=== PATIENT | female | born 1985 | race African-American/Black ===

== ENCOUNTER 2017-05-11 18:54 | Emergency (ER) | payer OTHER ==
[~2017-05-11] VITALS: Ht 165.1 cm; Wt 108.9 kg
[~2017-05-11 18:54] MED LIST: APAP500; COMBIVENT INH; DERMOPLAST SPRA56 ML; HYDROCORTISONE30 G9; IBUPROFEN 600600 M1; LANOLIN56 GM; PREDNISONE 20 M20 M1 PO; PRENATAL PO; TESSALON PERLE100 MG PO; TUCKS1 EAC1; ZPAK PO
[2017-05-11 19:40] LABS: URINE BILIRUBIN NEGATIVE (Negative); URINE BLOOD 1+ (Negative); URINE COLOR YELLOW; URINE GLUCOSE-RANDOM* NEGATIVE (Negative); URINE KETONES NEGATIVE (Negative); URINE NITRITE POSITIVE (Negative); URINE PROTEIN (DIPSTICK) TRACE (Negative)
[2017-05-11] MEDS ORDERED: MACROBID 100 M100 M1 PO (19:50)
[2017-05-11 19:56] LABS: BACTERIA >30 Many /HPF (None Seen); CASTS None Seen /LPF (None Seen); CRYSTALS None Seen /LPF (None Seen); SQUAMOUS 0-3 Few /LPF (0-3); URINE RBC 3-10 Few /HPF (0-2); URINE WBC >25 Many /HPF (0-5)
[2017-05-11 20:03] VITALS: BP 142/83
== END 2017-05-11 20:04 | disposition home or self-care (01) ==
LOC: ER 18:54
PROVIDERS: Emergency Medicine
DX: N39.0 Urinary tract infection, site not specified (principal); H92.01 Otalgia, right ear

== ENCOUNTER 2017-06-06 13:36 | Emergency (ER) | payer OTHER ==
[~2017-06-06] VITALS: Ht 165.1 cm; Wt 111.1 kg
[~2017-06-06 13:36] MED LIST changes: +MACROBID 100 M100 M1 PO
[2017-06-06 15:03] LABS: URINE BILIRUBIN NEGATIVE (Negative); URINE BLOOD TRACE (Negative); URINE COLOR YELLOW; URINE GLUCOSE-RANDOM* NEGATIVE (Negative); URINE KETONES NEGATIVE (Negative); URINE NITRITE NEGATIVE (Negative); URINE PROTEIN (DIPSTICK) NEGATIVE (Negative); URINE SPECIFIC GRAVITY >= 1.030 (1.003-1.035); URINE UROBILINOGEN 0.2 E.U./dl (0.2-1.0)
[2017-06-06 15:26] LABS: ABSOLUTE NEUTROPHILS 2.6 thou/uL (1.4-8.2); BASOPHILS 1.7 % (0.0-2.0); EOSINOPHILS 4.6 % (0.0-3.0); HEMATOCRIT 38.2 % (37.0-47.0); HEMOGLOBIN 12.2 gm/dL (12.0-15.0); LYMPHOCYTES 34.9 % (24.0-44.0); MCH 24.5 pg (26.0-34.0); MCV 76.5 fL (80.0-100.0); MONOCYTES 8.7 % (1.0-8.0); PLATELET COUNT 248 thou/uL (150-400); POLYS 50.1 % (36.0-66.0); RDW 15.7 % (10.5-14.5); WBC 5.2 thou/uL (4.0-11.0)
[2017-06-06 15:27] LABS: MANUAL DIFF NO
[2017-06-06 15:33] LABS: ANION GAP 9 mmol/L (7-16); BUN 10 mg/dL (7-18); CALCIUM 8.5 mg/dL (8.5-10.1); CHLORIDE 107 mmol/L (98-107); CO2 24 mmol/L (21-32); CREATININE 0.9 mg/dL (0.6-1.0); GLUCOSE 99 mg/dL (74-106); POTASSIUM 3.8 mmol/L (3.5-5.1); SODIUM 140 mmol/L (136-145)
[2017-06-06 15:38] LABS: ALBUMIN 3.2 g/dL (3.4-5.0); ALKALINE PHOSPHATASE 93 U/L (46-116); DIRECT BILIRUBIN < 0.1 mg/dL (<0.1-0.3); SGOT 16 U/L (15-37); SGPT 21 U/L (30-65); TOTAL BILIRUBIN 0.3 mg/dL (<0.1-1.0); TOTAL PROTEIN 6.8 g/dL (6.4-8.2)
[2017-06-06] MEDS ORDERED: NAPROSYN500 MG PO (16:27)
[2017-06-06 16:58] VITALS: BP 124/74
== END 2017-06-06 17:00 | disposition home or self-care (01) ==
LOC: ER 13:36
PROVIDERS: Emergency Medicine; Physician Assistant
DX: S39.011A Strain of muscle, fascia and tendon of abdomen, initial encounter (principal); M54.5 Low back pain; X58.XXXA Exposure to other specified factors, initial encounter; Y93.89 Activity, other specified; Y92.89 Other specified places as the place of occurrence of the external cause; Y99.8 Other external cause status